=== PATIENT | female | born 1930 | race Caucasian/White ===

== ENCOUNTER 2017-11-07 09:36 | Inpatient (IN) | payer MEDICARE ==
[~2017-11-07] VITALS: Ht 165.1 cm; Wt 68.6 kg
--- NOTE | ~2017-11-07 | CON ---
[place], [place] REPORT OF CONSULTATION [id number] UNIT #: [id number] ROOM: 512 DOCTOR: SAUL PEREIRA MD BIRTHDATE: [birth year] DOS: 11/08/2017 PULMONARY CONSULTATION, EVALUATION, AND MANAGEMENT CONSULTATION REQUESTED BY: Hospitalist services. REASON FOR CONSULTATION: For the assessment of the current respiratory symptoms as well as hypoxia. History was noted limited from the patient. Most of the history has been obtained from review of the medical records by ____ and other physician notes as well as from the patient's one of the daughters, who was present in the room with the patient. HISTORY OF PRESENT ILLNESS: This is an 87-year-old elderly female patient who was currently a resident of a nursing facility with history of dementia. The patient is staying at the nursing facility about a year or so. She had developed symptoms of increased coughing with chest congestion for about a week or so at the nursing facility. She has been treated with symptomatic management. The symptoms has been noted worsening requiring assessment in the Emergency Room. The patient was also noted symptoms of shortness of breath with that. The cough has been noted mostly nonproductive as per daughter. There were no symptoms of chest pain reported by the patient. She has been noted without any symptoms of dysphagia or wheezing. She has been admitted to the hospital for further medical management with current ongoing respiratory symptoms at this time. She was also noted with hypoxia. Pulse ox saturation recorded as 85% on room air. Currently, the patient has been getting oxygen supplementation on nasal cannula. REVIEW OF SYSTEMS: Could not be completed because the lack of ability of the patient to have verbal communication with a history of dementia. PAST MEDICAL HISTORY: 1. Reported history of longstanding dementia. 2. Past CVA. 3. Gastroesophageal reflux. 4. Hyperlipidemia. 5. Essential hypertension. 6. Hypothyroidism. 7. Osteoporosis. 8. Left bundle branch block. 9. Past history of transient ischemic attack. 10. Overall debility with advanced age. SOCIAL HISTORY: The patient has been reported nonsmoker lifetime, currently , staying at the nursing facility. As per daughter, there is no history of occupation-related pulmonary exposure history. FAMILY HISTORY: Both parents have been , but the history was unknown at the present time. [place], [place] REPORT OF CONSULTATION NAME: JULIO VALLE V UNIT #: [id number] ROOM: 512 DOCTOR: AURELIO LOGAN MD,SAUL BIRTHDATE: [birth year] MEDICATIONS: The medications noted on admission as use of Tylenol, Aricept, Mucinex, Boniva, levothyroxine, Namenda, metformin, metoprolol tartrate, ____, and simvastatin. PAST SURGICAL HISTORY: Noted with no known past major surgeries. DRUG ALLERGIES: No known drug allergies. PHYSICAL EXAMINATION: GENERAL: An 87-year-old female who has been currently noted to be lying on the bed without any acute distress at time of the assessment. She has been noted awake, alert, oriented, and cooperative with examination. The height was noted as 5 feet 5 inches, weight of 251 pounds, and BMI 25.1. VITAL SIGNS: Normal temperature, respiratory rate 19-20, heart rate 81-69, and blood pressure 136/66-147/72. The pulse oxygen saturation on 4 liters nasal cannula is 96% saturation. HEENT: On examination, head was atraumatic. Eyes nonicterus, age-related changes. Oral mucosa was moist. CARDIOVASCULAR: S1, S2 audible. LUNGS: The patient was noted with [id number] decreased breath sounds. There was no wheezing or crackles heard. ABDOMEN: Soft, nontender, and flat. EXTREMITIES: Noted without any acute edema, clubbing, or cyanosis. MUSCULOSKELETAL: Without any acute deformities. SKIN: Noted without any lesions or rashes. CENTRAL NERVOUS SYSTEM: Generalized weakness and fatigue were noted. Further examination could not be performed. LABORATORY DATA: Lactic acid yesterday noted 1.6. CBC of the patient yesterday noted essentially normal CBC as well. The CMP for the patient that was done on 11/07/2017, glucose 154, creatinine normal, and potassium 3.1. Influenza A and B, nasal washing antigens were negative. CBC of the patient this morning again repeated as normal. PT and PTT were normal. CMP this morning, glucose 216, BUN normal, creatinine normal, and potassium 3.6. Albumin 2.9. Blood culture was noted as gram-positive cocci in pairs and clusters. Urine culture preliminary showed no bacterial growths. Arterial blood gas that I ordered was done shows pH of 7.43, pCO2 35, and pO2 77.1. IMPRESSION: 1. The patient who has been noted with current bacteremia versus contamination of the blood culture gram-positive cocci in pairs and clusters, currently treated with vancomycin. 2. The patient with coughing and chest congestion. The chest x-ray of the patient that was done on admission does not show any pulmonary infiltration. Another chest x-ray was ordered portable that was reviewed with the patient does not show any acute cardiopulmonary disease, infiltration, or a large area of consolidation visible. 3. The patient with a history of hypothyroidism and essential hypertension. 4. Type 2 diabetes noted, also uncontrolled The exact reason of hypoxic [place], [place] REPORT OF CONSULTATION NAME[facility]: [id number] UNIT #: [id number] ROOM: 512 DOCTOR: SAUL PEREIRA MD BIRTHDATE: [birth year] respiratory failure is not clear, may be related to the asthmatic bronchitis. The patient reported wheezing previously, currently receiving the Solu-Medrol. Occult pneumonia cannot be excluded as the one view chest x-ray does not always exclude pulmonary infiltration because of decreased sensitivity, especially in the lower lungs. PLAN OF MANAGEMENT: For further re-assessment, CT scan of the chest will be ordered for this patient to be done with intravenous contrast. The CTA of the chest will be done for this patient. Continue oxygen supplementation to maintain pulse ox saturation 90% or greater. Continue to manage the bacteremia for this patient empirically with the use of intravenous vancomycin. The patient has two additional cultures of the blood taken later on today as well that will be monitored. Further change in the treatment will be made for the patient based on progression of the illness. Bronchodilators to help mobilize secretions as well. All other supportive therapy, plan of management, and care. The patient does expectorate sputum certainly it could be sent for Gram stain and culture as well. Thanks for allowing me to participate in the care of this patient. SAUL CAREY MD CM:CONSTR:REPORT OF CONSULTATION 1428 11/09/17 0603 interface
--- NOTE | ~2017-11-07 | PR ---
[place], [place] PROGRESS NOTE NAME: JULIO VALLE V UNIT #: [id number] ROOM: 512 DOCTOR: AURELIO LOGAN MD,SAUL BIRTHDATE: [birth year] DOS: 11/10/2017 SUBJECTIVE: The patient noted comfortable at this time, resting in the bed, does have cough, which has been noted mild without any sputum expectoration. Denies symptoms of chest pain, hemoptysis, or any abdominal pain. She has a CT scan of the chest that was completed yesterday. The patient has been noted history of dementia, not sure if accurately describe the history. However, the patient has been noted without any distress this morning of the assessment. Blood culture on of this month still remains pending. Gram stain noted gram-positive cocci in clusters. Other blood culture was taken for the patient on the one set and repeated on showed no bacterial growths. REVIEW OF SYSTEMS: Could not be completed effectively because of the patient's dementia. PHYSICAL EXAMINATION: VITAL SIGNS: Normal temperature, respiratory rate of the patient recorded as 18. The heart rate of 70, blood pressure 112/76. Pulse oxygen saturation of the patient noted on room air is 94% saturation, 2 liter previously 94% saturation as well. HEENT: Examination shows head was atraumatic. Eyes nonicterus. NECK: Supple. CARDIOVASCULAR: S1, S2 is audible. LUNGS: The patient was noted without any wheezing. There were no crackles. ABDOMEN: Soft and nontender. Bowel sounds present. EXTREMITIES: Without any acute edema. GENITOURINARY: Grossly nonfocal. SKIN: No lesions or rashes. MUSCULOSKELETAL SYMPTOMS: Denies any acute deformities. IMPRESSION: 1. The patient noted with bacteremia at this time. Contamination can be excluded with resolving acute bronchitis progressively with current medical management. 2. History of dementia. 3. Resolving bronchial asthma progressively. 4. Blood culture, rule out contamination versus stool infection at this time unknown. Follow up culture for the patient. Two of them on the remains negative and one culture the same day taken on as the patient came to the Emergency Room was negative as well for any bacterial growths. The dose of Solu-Medrol could be decreased to 40 mg daily today. [place], [place] PROGRESS NOTE NAME: JULIO VALLE V UNIT #: [id number] ROOM: [facility] DOCTOR: AURELIO LOGAN MD,SAUL BIRTHDATE: [birth year] SAUL CAREY MD CM:PNTRANS [id number] SAUL LOGAN MD 11/11/17 0425 interface
--- NOTE | ~2017-11-07 | PR ---
[place], [place] PROGRESS NOTE NAME: JULIO VALLE V UNIT #: [id number] ROOM: 512 DOCTOR: AURELIO LOGAN MD,SAUL BIRTHDATE: [birth year] DOS: 11/09/2017 SUBJECTIVE: She is noted comfortable at this time, noted awake and alert without any acute distress. The patient has not been noted to have any symptoms of chest pain or hemoptysis. She has been noted comfortable at this time. Her oxygen supplementation was noted . The patient has been noted chronic dementia, but noted with confusion. OBJECTIVE: VITAL SIGNS: For the patient, which have been recorded showed the temperature noted normal, respiratory rate 20, heart rate of 83, blood pressure 157/75. The pulse oxygen saturation on 2 liters cannula this morning 95% saturation. HEENT: Examination shows head was atraumatic. Eyes nonicterus. NECK: Supple. CARDIOVASCULAR: S1, S2 is audible. LUNGS: Without any wheezing or crackles. ABDOMEN: Soft, nontender. Bowel sounds present. EXTREMITIES: Without any acute edema. IMPRESSION: 1. The patient with acute respiratory failure at this time with asthmatic bronchitis as well. 2. History of chronic dementia. PLAN OF MANAGEMENT: The patient has been ordered CT scan of the chest that was pending. Gram-positive cocci bacteremia, at this time the source was not clear, which has been currently monitored. The final results of the blood culture was pending from 11/07/2017. One set of blood culture done on the same date 11/07/2017 showed no bacterial growth. Await for the CT scan of the chest. Continue Solu-Medrol, bronchodilator, and other therapy, plan of management and other care. Usual treatment, other supportive plan of therapy and care. SAUL CAREY MD CM:PNTRANS [id number] SAUL LOGAN MD 11/10/172000 interface
--- NOTE | ~2017-11-07 | PR ---
[place], [place] PROGRESS NOTE NAME: JULIO VALLE V UNIT #: [id number] ROOM: 512 DOCTOR: AURELIO LOGAN MD,SAUL BIRTHDATE: [birth year] DOS: 11/11/2017 SUBJECTIVE: She was noted comfortable, awake and alert, without ANY distress. Coughing has been improved significantly. Denies symptoms of chest pain and abdominal pain. OBJECTIVE: VITAL SIGNS: Normal temperature, respiratory rate 20, heart rate 77, blood pressure 148/65. The pulse oxygen saturation of the patient noted with 96% saturation. HEENT: No acute change. NECK: Supple. CARDIOVASCULAR: S1, S2 audible. LUNGS: Without any wheeze or crackle this morning. ABDOMEN: Soft, nontender. EXTREMITIES: Without any acute edema. IMPRESSION: Continued improvement and resolution noted in acute exacerbation of bronchial asthma and acute bronchitis. Blood culture noted Staphylococcus hominis, most likely would be considered contamination. PLAN OF MANAGEMENT: The patient could be discharged home on oral medications. The antibiotic and other treatment to be determined by the primary care attending prior to the discharge. SAUL CAREY MD CM:PNTRANS [id number] [id number] SAUL LOGNA MD 11/12/17225 interface
[~2017-11-07 09:36] MED LIST: ASPIRIN CHEWABL81 MG PO; BONIVA150 MG PO; CALTRATE 600 +1 TAB PO; DONEPEZIL HCL10 MG PO; DOXYCYCLINE100 M3 PO; LEVOFLOXACIN500 MG PO; LEVOTHYROXINE0.1 M1 PO; METOPROLOL SUCC25 M2 PO; MUCINEX ER600 MG PO; NAMENDA XR28 M1 PO; OMEPRAZOLE40 MG PO; PERCOCET 325 MG1 TA7 PO; PREDNISONE10 MG PO; SIMVASTATIN20 MG PO; TAMIFLU 75MG CA75 MG PO; ZYRTEC10 MG PO
[2017-11-07 09:51] VITALS: BP 148/90
[2017-11-07 09:59] LABS: BASO % 0.3 % (0.0-1.0); EOS # 0.1 10*3/uL (0.0-0.4); EOS % 0.6 % (1.0-4.0); HEMATOCRIT 44.1 % (37.0-47.0); HEMOGLOBIN 15.2 g/dl (12.0-16.0); LYMPH # 2.7 10*3/uL (1.3-4.4); MEAN CELL VOLUME 88.9 fl (81.0-99.0); MEAN CORPUSCULAR HGB 30.6 pg (27.0-31.0); MEAN CORPUSCULAR HGB CONC 34.5 g/dl (33.0-37.0); MONO # 0.7 10*3/uL (0.1-1.0); MONO % 6.1 % (3.0-9.0); NEUT # 7.2 10*3/uL (2.3-7.9); NEUT % 67.8 % (47.0-73.0); PLATELET COUNT AUTOMATED 252 10*3/uL (130-400); RED BLOOD COUNT 4.96 10*6/uL (4.10-5.10); RED CELL DISTRI WIDTH 14.3 % (0-14.5); WHITE BLOOD COUNT 10.7 10*3/uL (4.8-10.8)
[2017-11-07 10:28] LABS: BILIRUBIN 1+ (NEGATIVE); BLOOD NEGATIVE (NEGATIVE); CLARITY CLEAR (CLEAR); COLOR YELLOW (YELLOW); GLUCOSE NEGATIVE (NEGATIVE); KETONE 2+ (NEGATIVE); LEUKO ESTERASE NEGATIVE (NEGATIVE); NITRITE NEGATIVE (NEGATIVE); SPECIFIC GRAVITY 1.025 (1.005-1.030); UROBILINOGEN 0.2 E.U./dl (0.2-1.0)
[2017-11-07 10:29] VITALS: BP 128/66
[2017-11-07 10:29] LABS: ALBUMIN 3.1 gm/dl (3.1-4.5); ALKALINE PHOSPHATASE 84 U/L (45-117); BUN 11 mg/dl (7-24); CHLORIDE 103 mmol/L (98-107); CREATININE 0.86 mg/dL (0.55-1.02); POTASSIUM 3.1 mmol/L (3.5-5.1); SGOT/AST 24 IU/L (3-35); SGPT/ALT 29 U/L (12-78); SODIUM 140 mmol/L (136-145); TOTAL PROTEIN 7.1 gm/dL (6.4-8.2); TROPONIN I 0.025 ng/ml (<0.045)
[2017-11-07 10:38] LABS: BACTERIA 1+; EPITHELIAL CELLS 0-2; HYALINE CAST 35-40
[2017-11-07 11:16] VITALS: BP 130/66
[2017-11-07 12:10] VITALS: BP 126/64
[2017-11-07] MEDS ORDERED: ACETAMINOPHEN325 M2 PO (13:32)
[2017-11-07] MEDS ORDERED: METFORMIN500 MG PO (13:34)
[2017-11-07] MEDS ORDERED: METOPROLOL TART50 M1 PO (13:35)
[2017-11-07] MEDS ORDERED: METOPROLOL25 MG PO (13:36)
[2017-11-07] MEDS ORDERED: NAMENDA-7 PO (13:37)
[2017-11-07] MEDS ORDERED: ROBITUSSIN5 ML PO (13:38)
[2017-11-07 16:00] VITALS: BP 129/90
[2017-11-07 20:00] VITALS: BP 100/51
[2017-11-08] VITALS: BP 136/63
[2017-11-08 02:54] LABS: BASO % 0.1 % (0.0-1.0); HEMATOCRIT 39.6 % (37.0-47.0); HEMOGLOBIN 13.6 g/dl (12.0-16.0); LYMPH # 2.3 10*3/uL (1.3-4.4); LYMPH % 30.2 % (27.0-41.0); MEAN CELL VOLUME 89.6 fl (81.0-99.0); MEAN CORPUSCULAR HGB 30.8 pg (27.0-31.0); MEAN CORPUSCULAR HGB CONC 34.3 g/dl (33.0-37.0); MEAN PLATELET VOLUME 8.9 fl (9.6-12.3); MONO # 0.4 10*3/uL (0.1-1.0); MONO % 5.6 % (3.0-9.0); NEUT # 4.7 10*3/uL (2.3-7.9); NEUT % 63.7 % (47.0-73.0); PLATELET COUNT AUTOMATED 251 10*3/uL (130-400); RED BLOOD COUNT 4.42 10*6/uL (4.10-5.10); RED CELL DISTRI WIDTH 14.5 % (0-14.5); WHITE BLOOD COUNT 7.5 10*3/uL (4.8-10.8)
[2017-11-08 03:11] LABS: ALBUMIN 2.9 gm/dl (3.1-4.5); ALKALINE PHOSPHATASE 73 U/L (45-117); BUN 13 mg/dl (7-24); CHLORIDE 104 mmol/L (98-107); CHOLESTEROL 151 mg/dL (<200); CREATININE 0.99 mg/dL (0.55-1.02); HDL CHOLESTEROL 43 mg/dl (40-60); LDL CHOLESTEROL 90 mg/dL (9-159); PHOSPHOROUS 2.2 mg/dL (2.5-4.9); POTASSIUM 3.4 mmol/L (3.5-5.1); SGOT/AST 17 IU/L (3-35); SGPT/ALT 26 U/L (12-78); SODIUM 139 mmol/L (136-145); TOTAL PROTEIN 6.7 gm/dL (6.4-8.2); TRIGLYCERIDES 88 mg/dl (<150); VLDL CHOLESTEROL 18 mg/dL (6-40)
[2017-11-08 03:12] LABS: ACT PARTIAL THROMBO TIME 20.7 SECONDS (20.8-31.5)
[2017-11-08 03:13] LABS: FREE T4 1.48 ng/dl (0.76-1.46)
[2017-11-08 03:17] LABS: THYROID STIM HORMONE (HS) 0.255 uIU/ml (0.358-4.75)
[2017-11-08 07:42] LABS: VITAMIN D, 25-HYDROXY 23.3 ng/mL (30-100)
[2017-11-08 08:00] VITALS: BP 147/72
[2017-11-08 12:00] VITALS: BP 138/59
[2017-11-08 12:08] LABS: ABG BASE EXCESS 0.1 mmol/L (-2.0-2.0); ABG HCO3 23.4 mmol/l (22-26); ABG O2 SATURATION 95.9 % (95-97); ARTERIAL BLOOD GAS PCO2 35.5 mmHg (35-45); ARTERIAL BLOOD GAS PH 7.435 (7.35-7.45); ARTERIAL BLOOD GAS PO2 77.1 mmHg (80-90)
[2017-11-08 16:00] VITALS: BP 143/70
[2017-11-08 20:00] VITALS: BP 135/65
[2017-11-09] VITALS: BP 143/72
[2017-11-09 08:00] VITALS: BP 157/75
[2017-11-09 12:00] VITALS: BP 157/83
[2017-11-09 16:00] VITALS: BP 164/64
[2017-11-09 20:00] VITALS: BP 137/78
[2017-11-10] VITALS: BP 132/53
[2017-11-10 06:01] LABS: ALBUMIN 2.5 gm/dl (3.1-4.5); ALKALINE PHOSPHATASE 64 U/L (45-117); BUN 14 mg/dl (7-24); CHLORIDE 109 mmol/L (98-107); CREATININE 0.67 mg/dL (0.55-1.02); POTASSIUM 3.5 mmol/L (3.5-5.1); SGOT/AST 20 IU/L (3-35); SGPT/ALT 32 U/L (12-78); SODIUM 143 mmol/L (136-145); TOTAL PROTEIN 5.9 gm/dL (6.4-8.2); TROPONIN I 0.037 ng/ml (<0.045)
[2017-11-10 06:19] LABS: BASO % 0.2 % (0.0-1.0); HEMATOCRIT 37.6 % (37.0-47.0); HEMOGLOBIN 12.3 g/dl (12.0-16.0); LYMPH # 3.7 10*3/uL (1.3-4.4); LYMPH % 34.3 % (27.0-41.0); MEAN CELL VOLUME 91.3 fl (81.0-99.0); MEAN CORPUSCULAR HGB 29.9 pg (27.0-31.0); MEAN CORPUSCULAR HGB CONC 32.7 g/dl (33.0-37.0); MEAN PLATELET VOLUME 9.5 fl (9.6-12.3); MONO # 0.6 10*3/uL (0.1-1.0); MONO % 5.2 % (3.0-9.0); NEUT # 6.4 10*3/uL (2.3-7.9); NEUT % 59.7 % (47.0-73.0); PLATELET COUNT AUTOMATED 240 10*3/uL (130-400); RED BLOOD COUNT 4.12 10*6/uL (4.10-5.10); RED CELL DISTRI WIDTH 14.5 % (0-14.5); WHITE BLOOD COUNT 10.8 10*3/uL (4.8-10.8)
[2017-11-10 08:00] VITALS: BP 112/76
[2017-11-10 12:00] VITALS: BP 143/60
[2017-11-10 16:00] VITALS: BP 150/90
[2017-11-10 20:00] VITALS: BP 154/77
[2017-11-11] VITALS: BP 148/65
[2017-11-11 08:00] VITALS: BP 170/70
[2017-11-11] MEDS ORDERED: SYNTHROID,LEVO75 MCG PO (10:41)
[2017-11-11] MEDS ORDERED: DOXYCYCLINE100 M3 PO (10:41)
[2017-11-11] MEDS ORDERED: K-PHOS500 MG PO (10:41)
[2017-11-11] MEDS ORDERED: PREDNISONE10 MG PO (10:41)
[2017-11-11] MEDS ORDERED: VITAMIN D-32000 UNI1 PO (10:41)
== END 2017-11-11 13:46 | disposition home or self-care (01) | DRG 193 ==
LOC: ED 09:36 → EDHOLD 10:50 → 5E 10:50 → EDHOLD 11:11 → 5E 11:21
PROVIDERS: Family Medicine; Internal Medicine Critical Care Medicine; Nurse Practitioner Family; Registered Nurse; Student in an Organized Health Care Education/Training Program
DX: J18.9 Pneumonia, unspecified organism (principal); J96.00 Acute respiratory failure, unspecified whether with hypoxia or hypercapnia; E44.0 Moderate protein-calorie malnutrition; J45.901 Unspecified asthma with (acute) exacerbation; K21.9 Gastro-esophageal reflux disease without esophagitis; I44.7 Left bundle-branch block, unspecified; E87.6 Hypokalemia; M81.0 Age-related osteoporosis without current pathological fracture; F03.90 Unspecified dementia, unspecified severity, without behavioral disturbance, psychotic disturbance, mood disturbance, and anxiety; E78.5 Hyperlipidemia, unspecified; I10 Essential (primary) hypertension; E03.9 Hypothyroidism, unspecified; F10.20 Alcohol dependence, uncomplicated; F02.80 Dementia in other diseases classified elsewhere, unspecified severity, without behavioral disturbance, psychotic disturbance, mood disturbance, and anxiety; J20.9 Acute bronchitis, unspecified; Z68.25 Body mass index [BMI] 25.0-25.9, adult; Z86.73 Personal history of transient ischemic attack (TIA), and cerebral infarction without residual deficits; Z79.84 Long term (current) use of oral hypoglycemic drugs; Z79.899 Other long term (current) drug therapy; Z90.710 Acquired absence of both cervix and uterus